=== PATIENT | male | born 1980 | race Caucasian/White ===

== ENCOUNTER 2018-01-10 12:10 | Inpatient (IN) ==
[2018-01-10 14:06] LABS: Baso # (Auto) 0.1 th/mm3 (0.0-0.2); Baso % (Auto) 0.7 % (0.0-2.0); Eos % (Auto) 0.1 % (0.0-4.0); Hematocrit 45.4 % (39.0-51.0); Lymph # (Auto) 1.6 th/mm3 (1.0-4.8); Lymph % (Auto) 15.1 % (9.0-44.0); Mean Corpuscular HGB Conc 35.3 % (32.0-36.0); Mean Corpuscular Volume 85.1 fL (80.0-100.0); Mean Platelet Volume 7.5 fL (7.0-11.0); Mono # (Auto) 0.5 th/mm3 (0.0-0.9); Mono % (Auto) 4.5 % (0.0-8.0); Neut # (Auto) 8.4 th/mm3 (1.8-7.7); Neut % (Auto) 79.6 % (16.0-70.0); Platelet Count 334 th/mm3 (150-450); Red Blood Count 5.33 mil/mm3 (4.50-5.90); Red Cell Distribution Width 13.7 % (11.6-17.2); White Blood Count 10.6 th/mm3 (4.0-11.0)
[2018-01-10 14:13] LABS: Amphetamine Screen,Urine Neg (Neg); Barbiturate Screen,Urine Neg (Neg); Cannabinoid Screen,Urine Pos (Neg); Cocaine Screen,Urine Neg (Neg)
[2018-01-10 14:14] LABS: Opiate Screen,Urine Neg (Neg)
[2018-01-10] MEDS ORDERED: Lidocaine PF 1% Inj 30 ML Vial ONE (14:18)
--- NOTE | 2018-01-10 14:40 | ED ---
HPI General Chief Complaint: Psychiatric Symptoms Stated Complaint: Psych Eval/VCSO Time Seen by Provider: 01/10/18 15:43 Source: patient and EMS Mode of arrival: EMS Limitations: no limitations History of Present Illness HPI Narrative: 37-year-old male patient presents to the ER today brought in because apparently he had an argument with girlfriend, and had split his left wrist, states that he was upset, but is upset that he had done this. He denies any ingestions, denies any other injuries. He denies suicidal ideation, however patient has been Castano acted. Related Data Home Medications Medication Instructions Recorded Confirmed lisinopril 10 mg PO DAILY 01/10/18 01/10/18 Allergies Allergy/AdvReac Type Severity Reaction Status Date / Time No Known Allergies Allergy Unverified 01/10/18 13:08 Review of Systems Except as stated in HPI: all other systems reviewed are negative [facility] Medical History Medical History Seizure (Acute) Surgical History Surgical History H/O brain surgery (Acute) Social History Social History Substance History: No History of Abuse and Past History Second Hand Smoke Exposure: No Smoking Status: Unknown if ever smoked How Often Do You Have a Drink Containing Alcohol: 2 to 4 times a month Recent Travel in [facility] within the Last 8 Weeks: No Recent Out of Country Travel within the Last 8 Weeks: No Immunization History Tetanus Immunization: Unsure Hx Influenza Vaccine This Season: No Exam Narrative Exam Narrative: GENERAL: Well-developed young white male patient currently and mild distress. Awake and oriented 3. SKIN: Focused skin assessment warm/dry. There is a 4 cm laceration of the left wrist, does not involve the ligaments, and several linear lacerations around this area as well. HEAD: Atraumatic. Normocephalic. EYES: Pupils equal and round. No scleral icterus. No injection or drainage. ENT: No nasal bleeding or discharge. Mucous membranes pink and moist. NECK: Trachea midline. No JVD. CARDIOVASCULAR: Regular rate and rhythm. No murmur appreciated. RESPIRATORY: No accessory muscle use. Clear to auscultation. Breath sounds equal bilaterally. GASTROINTESTINAL: Abdomen soft, non-tender, nondistended. Hepatic and splenic margins not palpable. MUSCULOSKELETAL: No obvious deformities. No clubbing. No cyanosis. No edema. NEUROLOGICAL: Awake and alert. No obvious cranial nerve deficits. Motor grossly within normal limits. Normal speech. PSYCHIATRIC: Appropriate mood and affect; insight and judgment normal. Procedures Laceration Laceration 1: Site: other (Left wrist) Side (If applicable): left Size (cm): 4 Description: linear Depth: simple, single layer Anesthetic used: lidocaine 1% Pre-repair:: wound explored, irrigated extensively and deep structures intact Skin layer closed with: vicryl Size (cm): 3-0 Number of sutures:: 5 Technique:: simple, interrupted Course Hospital Course: Sutures were done by me in the ER. Wound care instructions given, sutures to be taken out in 10-14 days. Patient's tetanus shots are up-to-date. Lab work has been done and patient will be medically cleared for psychiatric evaluation. Initial Documented Vital Signs Temperature 98.2 F 01/10/18 12:19 Pulse Rate 70 01/10/18 12:19 Respiratory Rate 16 01/10/18 12:19 Blood Pressure 169/83 H 01/10/18 12:19 Pulse Oximetry 100 01/10/18 12:19 Last Documented Vital Signs Temperature 98.2 F 01/10/18 12:19 Pulse Rate 68 01/10/18 14:46 Respiratory Rate 16 01/10/18 12:19 Blood Pressure 142/78 H 01/10/18 14:46 Pulse Oximetry 100 01/10/18 12:19 Medical Decision Making Differential Diagnosis Differential Diagnosis: Psych/Castano act/laceration Lab Data Result diagrams: 01/10/18 13:25 01/10/18 13:25 Lab Results 01/10/18 01/10/18 01/10/18 Range/Units 12:25 13:25 13:25 WBC 10.6 (4.0-11.0) th/mm3 RBC 5.33 (4.50-5.90) mil/mm3 Hgb 16.0 (13.0-17.0) gm/dL Hct 45.4 (39.0-51.0) % MCV 85.1 (80.0-100.0) fL MCH 30.0 (27.0-34.0) pg MCHC 35.3 (32.0-36.0) % RDW 13.7 (11.6-17.2) % Plt Count 334 (150-450) th/mm3 MPV 7.5 (7.0-11.0) fL Neut % (Auto) 79.6 H (16.0-70.0) % Lymph % (Auto) 15.1 (9.0-44.0) % Pickett % (Auto) 4.5 (0.0-8.0) % Eos % (Auto) 0.1 (0.0-4.0) % Baso % (Auto) 0.7 (0.0-2.0) % Neut # (Auto) 8.4 H (1.8-7.7) th/mm3 Lymph # (Auto) 1.6 (1.0-4.8) th/mm3 Pickett # (Auto) 0.5 (0.0-0.9) th/mm3 Eos # (Auto) 0.0 (0.0-0.4) th/mm3 Baso # (Auto) 0.1 (0.0-0.2) th/mm3 WBC Differential . Differential Comment Auto diff final Sodium 141 (136-145) meq/L Potassium 3.7 (3.5-5.1) meq/L Chloride 108 H (98-107) meq/L Carbon Dioxide 21.5 (21.0-32.0) meq/L Anion Gap 12 (5-15) meq/L BUN 9 (7-18) mg/dL Creatinine 1.01 (0.60-1.30) mg/dL Estimated GFR 84 L (>89) mL/min Random Glucose 90 (74-106) mg/dL Calcium 9.2 (8.5-10.1) mg/dL Total Bilirubin 0.5 (0.2-1.0) mg/dL AST 7 L (15-37) U/L ALT 19 (12-78) U/L Alkaline Phosphatase 58 (45-117) U/L Total Protein 7.8 (6.4-8.2) g/dL Albumin 4.9 (3.4-5.0) g/dL TSH 0.692 (0.358-3.740) uIU/mL Urine Opiates Screen Neg (Neg) Ur Barbiturates Screen Neg (Neg) Ur Amphetamines Screen Neg (Neg) U Benzodiazepines Scrn Neg (Neg) Urine Cocaine Screen Neg (Neg) U Cannabinoids Screen Pos H (Neg) Serum Alcohol Less than 3 (0-5) mg/dL Discharge Plan Discharge Disposition Patient Disposition: 30 Still Patient Discharge Condition Condition: Stable Discharge Details Anticipated Discharge Date: 01/10/18 Diagnosis: Suicidal ideation, Laceration Physicians Team ED Provider: Gerardo Bran Rxs /Orders / Referrals /Forms Prescriptions: No Action lisinopril 10 mg Tablet 10 mg PO DAILY RF: 0 Discharge Interventions Interventions: ED Discharge Assessment Last Done: 01/10/18 14:46 Vital Signs Last Done: 01/10/18 14:46 Status ED Status: With Doctor
[2018-01-10 15:23] LABS: Alanine Aminotransferase 19 U/L (12-78); Albumin 4.9 g/dL (3.4-5.0); Anion Gap 12 meq/L (5-15); Aspartate Aminotransferase 7 U/L (15-37); Blood Urea Nitrogen 9 mg/dL (7-18); Calcium 9.2 mg/dL (8.5-10.1); Carbon Dioxide 21.5 meq/L (21.0-32.0); Chloride 108 meq/L (98-107); Glomerular Filtration Rate 84 mL/min (>89); Glucose,Random 90 mg/dL (74-106); Potassium 3.7 meq/L (3.5-5.1); Sodium 141 meq/L (136-145)
[2018-01-10 15:33] LABS: Alkaline Phosphatase 58 U/L (45-117); Thyroid Stimulating Hormone 0.692 uIU/mL (0.358-3.740); Total Protein 7.8 g/dL (6.4-8.2)
--- NOTE | 2018-01-10 16:56 | ED ---
HPI - Psych - General Source: patient, EMS Mode of arrival: EMS Limitations: no limitations - History of Present Illness MD complaint: suicidal ideation Onset (ago): month(s) Duration: getting worse History of same: Yes Relieving factors: none Exacerbating factors: none Context: significant life stressor Associated psychiatric symptoms: depression Associated symptoms: denies other symptoms Treatments prior to arrival: none If self harm: admits thoughts of self harm - General Chief Complaint: Psychiatric Symptoms Stated Complaint: Psych Eval/VCSO Time Seen by Provider: 01/10/18 15:43 - History of Present Illness HPI Narrative: This is adult male who presents to this facility under Castano act or making suicidal statements and lacerating his wrist with a knife. He has not been seen at this facility previously. Reviewed electronic medical record, labs, discuss case with staff. Patient was evaluated in his room and J pod. He was found awake, alert, and oriented 4. His speech is clear, logical, and organized. At this time he denies suicidal ideation, homicidal ideation, auditory or visual hallucinations. I can elicit no delusional material. There is no indication of internal stimulation or thought blocking. Patient's mood is sad as is his affect. He is neatly groomed wearing hospital pajamas. He interacts appropriately throughout the interview. Patient states that he "cut his wrist with a knife. I was depressed and trying to kill myself." When asked if anything occurred which made him this despondent he responded, "I think it is the medicine I am on. I take Vimpat for epilepsy." He goes on to explain that he has an associates degree in aircraft maintenance however approximately 5-6 years ago he was diagnosed with new onset of epilepsy. He since has lost his driving privilege and consequently his job. He states that this year he restarted receiving Social Security disability. He reports that he grew up in [place] lives with his who he in 2005. They have no children currently and states that they have a "good relationship". He denies any previous suicide attempts. He denies smoking cigarettes, drinking alcohol, and using drugs. He does state that he had "problems with alcohol" and stopped drinking "a long time ago". He denies any family history of suicide or mental illness. And when asked that question stated, "I believe this is just situational". When asked what situation led to his decision to attempt to end his life he related us that he was helping his in the garden and "I felt like I could not do anything right like I was worthless". Patient does state that he has been quite depressed for several months now since starting the Vimpat in August. (Cici Akins) - Related Data Home Medications Medication Instructions Recorded Confirmed lacosamide [Vimpat] 150 mg PO BID 01/10/18 01/10/18 lisinopril 10 mg PO DAILY 01/10/18 01/10/18 Allergies Allergy/AdvReac Type Severity Reaction Status Date / Time No Known Allergies Allergy Unverified 01/10/18 13:08 PMFSH - History History Provided By: Patient, Broadcast Chief Engineer / EMT, Law Enforcement - Medical History Medical History: Medical History (Last Reviewed 01/10/18 @ 16:48 by TIM Nielsen) Seizure - Surgical History Surgical History: Surgical History (Last Reviewed 01/10/18 @ 16:48 by TIM Nielsen) H/O brain surgery - Tobacco History Second Hand Smoke Exposure: No Smoking Status: Unknown if ever smoked - Alcohol History How Often Do You Have a Drink Containing Alcohol: 2 to 4 times a month - Substance Use History Substance History: Past History - Travel History Recent Travel in the [place] Within the Last 8 Weeks: No Recent Travel Out of the Country Within the Last 8 Weeks: No - Immunization History Tetanus Immunization: Unsure Hx Influenza Vaccine This Season: No Psychiatric History - Psychiatric History History of Inpatient Treatment: No Firearms in Home: No - Psychiatric History Denies (Cici Akins) - Legal History Denies (Cici Akins) - Family Psychiatric History Denies (Cici Akins) Physical Exam - General Limitations: no limitations General appearance: alert Mental Status Examination Appearance: Appropriate, Well dressed/well groomed Consciousness: Alert Orientation: x4 Motor Activity: Normal gait Speech: Unremarkable Language: Adequate Fund of Knowledge: Adequate Attention and Concentration: Adequate Memory: Unremarkable Mood: Appropriate Affect: Appropriate Thought Process & Associations: Intact Thought Content: Appropriate Hallucination Type: None Delusion Type: None Suicidal Ideation: No Suicidal Plan: No Suicidal Intention: No Homicidal Ideation: No Homicidal Plan: No Homicidal Intention: No Insight: Fair Judgment: Impulsive Course Course Narrative: Sutures were done by me in the ER. Wound care instructions given, sutures to be taken out in 10-14 days. Patient's tetanus shots are up-to-date. Lab work has been done and patient will be medically cleared for psychiatric evaluation. Initial Documented Vital Signs Temperature 98.2 F 01/10/18 12:19 Pulse Rate 70 01/10/18 12:19 Respiratory Rate 16 01/10/18 12:19 Blood Pressure 169/83 H 01/10/18 12:19 Pulse Oximetry 100 01/10/18 12:19 Last Documented Vital Signs Temperature 98.2 F 01/10/18 12:19 Pulse Rate 68 01/10/18 14:46 Respiratory Rate 16 01/10/18 12:19 Blood Pressure 142/78 H 01/10/18 14:46 Pulse Oximetry 100 01/10/18 12:19 MDM - Psych - Diagnosis (1) Suicide attempt Status: Acute - Lab Data Result diagrams: 01/10/18 13:25 01/10/18 13:25 - MDM Narrative Medical decision making narrative: Given the extent of the patient's self-inflicted injury and his statements of feeling depressed for "months", he will remain under the Castano act and be admitted to an inpatient locked psychiatric facility for further evaluation and treatment as deemed necessary. When I advised this patient that he was to be admitted he instantly escalated stating, "I will not take any medication unless it is cleared by my neurologist", when I explained to him that was fine he was still being admitted he choose me down the posey and asked "what if I agree to take the medicine". When I explained that due to the severity of his actions that it would be remiss not to observe him to make some attempt to alleviate the depressive symptoms, he began breathing very heavily as if trying to control anger. Therefore I am placing him on 2700 unit as his behavior upon being told he is being admitted became somewhat labile and he seemed like he could act out. (Cici Akins) - Lab Data Lab Results 01/10/18 01/10/18 01/10/18 Range/Units 12:25 13:25 13:25 WBC 10.6 (4.0-11.0) th/mm3 RBC 5.33 (4.50-5.90) mil/mm3 Hgb 16.0 (13.0-17.0) gm/dL Hct 45.4 (39.0-51.0) % MCV 85.1 (80.0-100.0) fL MCH 30.0 (27.0-34.0) pg MCHC 35.3 (32.0-36.0) % RDW 13.7 (11.6-17.2) % Plt Count 334 (150-450) th/mm3 MPV 7.5 (7.0-11.0) fL Neut % (Auto) 79.6 H (16.0-70.0) % Lymph % (Auto) 15.1 (9.0-44.0) % Jennings % (Auto) 4.5 (0.0-8.0) % Eos % (Auto) 0.1 (0.0-4.0) % Baso % (Auto) 0.7 (0.0-2.0) % Neut # (Auto) 8.4 H (1.8-7.7) th/mm3 Lymph # (Auto) 1.6 (1.0-4.8) th/mm3 Jennings # (Auto) 0.5 (0.0-0.9) th/mm3 Eos # (Auto) 0.0 (0.0-0.4) th/mm3 Baso # (Auto) 0.1 (0.0-0.2) th/mm3 WBC Differential . Differential Comment Auto diff final Sodium 141 (136-145) meq/L Potassium 3.7 (3.5-5.1) meq/L Chloride 108 H (98-107) meq/L Carbon Dioxide 21.5 (21.0-32.0) meq/L Anion Gap 12 (5-15) meq/L BUN 9 (7-18) mg/dL Creatinine 1.01 (0.60-1.30) mg/dL Estimated GFR 84 L (>89) mL/min Random Glucose 90 (74-106) mg/dL Calcium 9.2 (8.5-10.1) mg/dL Total Bilirubin 0.5 (0.2-1.0) mg/dL AST 7 L (15-37) U/L ALT 19 (12-78) U/L Alkaline Phosphatase 58 (45-117) U/L Total Protein 7.8 (6.4-8.2) g/dL Albumin 4.9 (3.4-5.0) g/dL TSH 0.692 (0.358-3.740) uIU/mL Urine Opiates Screen Neg (Neg) Ur Barbiturates Screen Neg (Neg) Ur Amphetamines Screen Neg (Neg) U Benzodiazepines Scrn Neg (Neg) Urine Cocaine Screen Neg (Neg) U Cannabinoids Screen Pos H (Neg) Serum Alcohol Less than 3 (0-5) mg/dL
[2018-01-11] MEDS: Lacosamide 50 MG Tablet PO SCH ×2 (00:18→10:24)
[2018-01-11] MEDS ORDERED: Lisinopril 10 MG Tablet PO SCH (09:00)
[2018-01-11 09:13] LABS: Calcium 9.5 mg/dL (8.5-10.1); Carbon Dioxide 20.9 meq/L (21.0-32.0); Potassium 3.7 meq/L (3.5-5.1)
[2018-01-11 09:18] LABS: Chol/HDL Ratio 3.58 Ratio; HDL Cholesterol 42.1 mg/dL (40.0-60.0)
[2018-01-11 11:26] LABS: Hemoglobin A1c 4.6 % (4.3-6.0)
[2018-01-11] MEDS ORDERED: Bisacodyl 10 MG Supp RECTAL PRN (12:39)
[2018-01-11] MEDS ORDERED: Aluminum/Magnesium/Simethacone Susp 30 ML UDC PO PRN (12:39)
--- NOTE | 2018-01-11 12:47 | P.HPPSY ---
Provisional Diagnosis Admission Date: January 10, 2018 16:44 [place] I.: Adjustment disorder with mixed disturbances of emotion and conduct Competence Certification of Person's Competence To Provide Express and Informed Consent I have personally examined Hang Matos, a person being served at [facility] on, January 11, 2018 1245. Express and informed consent means consent voluntarily given in writing, by a competent person, after sufficient explanation and disclosure of the subject matter involved to enable the person to make a knowing and willful decision without any element of force, fraud, deceit, duress, or other form of constraint or coercion. This person is 18 years of age or older, is not now known to be incompetent to consent to treatment with a guardian advocate, and does not have a health care surrogate or proxy currently making medical treatment decisions. I have found this person to be one of the following: [[id number]] Competent to provide express and informed consent, as defined above, for voluntary admission to this facility and is competent to provide express and informed consent for treatment. He/she has the consistent capacity to make well reasoned, willful, and knowing decisions concerning his or her medical or mental health treatment. The person fully and consistently understands the purpose of the admission for examination/placement and is fully capable of personally exercising all rights assured [place] Incompetent to provide express and informed consent to voluntary admission, and this is incompetent to provide express and informed consent to treatment. The person must be transferred to involuntary status and a petition for a guardian advocate filed with the Circuit Court. [] Refusing to provide express and informed consent to voluntary admission but is competent to provide express and informed consent for treatment. The person must be discharged or transferred to involuntary status. Form shall be completed within 24 hours of a person's arrival at the receiving facility and filed in the clinical record of each person: 1. Admitted on a voluntary basis 2. Permitted to provide express and informed consent to his/her own treatment 3. Allowed to transfer from involuntary to voluntary status 4. Prior to permitting a person to consent to his or her own treatment after having been previously found incompetent to consent to treatment. History of Present Illness Capacity: Has capacity History of Present Illness: Patient is a 37-year-old white male initially comes for under Castano act by the [facility]'s office dated 01/10/2018 at 11:10 AM that document reviewed stating subject advised he wanted to kill himself subject cut his wrist causing significant bleeding. Subject statements of wanting to kill himself coupled with cutting himself indicates a substantial likelihood that without careful treatment subject will hurt himself patient seen screen in the ED urine toxicology positive for marijuana. At the present time patient sitting quietly in his room nurse Deidre present throughout session. Patient alert and oriented white male appears about his stated age sitting quietly in his room with bandages noted on his left wrist. Patient states he became upset at home this illness charges of his life in the difficulty with finding a means of controlling his multiple years seizure disorder which includes at least 3 or 4 cranial procedures. Leading to loss of his job and difficulty finding appointment. He knew his gotten a little bit of an argument with it and cut his left wrist and came in showed her he became instantly regretful of this. At the present time patient denies suicidality homicidality voice or visions. States he loves his that they have much to live for he is an animal person and they do have dogs and cats in their house. Patient does go to the epilepsy group he has an appointment on Saturday with his psychologist from that group and is planning and also seeing a psychiatrist from that group. He denies any significant alcohol abuse. He minimizes his use of marijuana. At this time patient does not meet Castano criteria will lift Castano act patient to be discharged from self with no Rx by me. He may continue his on seizure medication at all follow-up with his seizure physician and his counselor - Inpatient Certification I certify that the inpatient services were ordered in accordance with Medicare regulations governing the order. This includes certification that hospital inpatient services are reasonable and necessary and in the case of services not specified as inpatient-only under 42 CFR 419.22(n), that they are appropriately provided as inpatient services in accordance to with the 2-midnight benchmark under 43 CFR 412.3(e) I certify that inpatient psychiatric hospital services are medically necessary. Evaluation and treatment and/or diagnostic testing are expected to improve the patient's condition. The patient needs on a daily basis, active treatment furnished directly by or requiring the supervision of inpatient psychiatric facility personnel. Estimated Total Length of Stay (Days): 1 Plans for Post Hospital Care: Home Review of Systems All other systems reviewed negative except as stated in [facility] - History History Provided By: Patient - Medical History Medical History: Medical History (Last Reviewed 01/10/18 @ 16:48 by TIM Nielsen) Seizure - Surgical History Surgical History: Surgical History (Last Reviewed 01/10/18 @ 16:48 by TIM Nielsen) H/O brain surgery - Tobacco History Second Hand Smoke Exposure: No Smoking Status: Never smoker - Alcohol History How Often Do You Have a Drink Containing Alcohol: Never - Substance Use History Substance History: No History of Abuse - Travel History Recent Travel in the [place] Within the Last 8 Weeks: No Recent Travel Out of the Country Within the Last 8 Weeks: No - Immunization History Tetanus Immunization: Unsure Hx Influenza Vaccine This Season: No Quality Measures - Psychiatric History Psychological trauma history: Patient denies Violence risk to others in the last 6 months: Low Violence risk to self in the last 6 months: Low to moderate - Substance Abuse History Drug or alcohol use in the past 12 months: Patient occasional user of marijuana - Patient Strengths Patient's strengths (minimum of 2): Patient verbal able access healthcare cooperative Medications and Allergies Active Medications: Active Medications Al Hydrox/Mg Hydrox/Simethicone (Mag-Al Plus Susp Liq) 30 ml PO Q6H PRN PRN Reason: DYSPEPSIA Al Hydroxide/Mg Hydroxide (Milk Of Magnesia Liq) 30 ml PO Q12H PRN PRN Reason: Mild Constipation Al Hydroxide/Mg Hydroxide (Milk Of Magnesia Liq) 30 ml PO Q12H PRN PRN Reason: Mild Constipation Bisacodyl (Dulcolax Supp) 10 mg RECTAL DAILY PRN PRN Reason: SEVERE CONSITIPATION Lacosamide (Vimpat) 150 mg PO BID [facility] Last Admin: 01/11/18 10:24 Dose: 150 mg Lactulose (Lactulose Liq) 30 ml PO DAILY PRN PRN Reason: SEVERE CONSITIPATION Lisinopril (Prinivil) 10 mg PO DAILY [facility] Last Admin: 01/11/18 10:25 Dose: 10 mg Senna/Docusate Sodium (Merle-Colace) 1 tab PO BID [facility] Sennosides (Senokot) 17.2 mg PO Q12H PRN PRN Reason: Moderate Constipation Allergies Allergy/AdvReac Type Severity Reaction Status Date / Time No Known Allergies Allergy Unverified 01/10/18 13:08 Home Medications Medication Instructions Recorded Confirmed Type lacosamide [Vimpat] 150 mg PO BID 01/10/18 01/10/18 History zonisamide [Zonegran] 200 mg PO Q12H 01/11/18 01/11/18 History Results - Labs CBC & Chem 7: 01/10/18 13:25 01/11/18 07:58 Labs: Laboratory Results - last 24 hr 01/10/18 01/10/18 01/10/18 12:25 13:25 13:25 WBC 10.6 RBC 5.33 Hgb 16.0 Hct 45.4 MCV 85.1 MCH 30.0 MCHC 35.3 RDW 13.7 Plt Count 334 MPV 7.5 Neut % (Auto) 79.6 H Lymph % (Auto) 15.1 Rains % (Auto) 4.5 Eos % (Auto) 0.1 Baso % (Auto) 0.7 Neut # (Auto) 8.4 H Lymph # (Auto) 1.6 Rains # (Auto) 0.5 Eos # (Auto) 0.0 Baso # (Auto) 0.1 WBC Differential . Differential Comment Auto diff final Sodium 141 Potassium 3.7 Chloride 108 H Carbon Dioxide 21.5 Anion Gap 12 BUN 9 Creatinine 1.01 Estimated GFR 84 L Random Glucose 90 Calcium 9.2 Total Bilirubin 0.5 AST 7 L ALT 19 Alkaline Phosphatase 58 Total Protein 7.8 Albumin 4.9 Triglycerides Cholesterol LDL Cholesterol, Calc HDL Cholesterol Cholesterol/HDL Ratio TSH 0.692 Urine Opiates Screen Neg Ur Barbiturates Screen Neg Ur Amphetamines Screen Neg U Benzodiazepines Scrn Neg Urine Cocaine Screen Neg U Cannabinoids Screen Pos H Serum Alcohol Less than 3 01/11/18 07:58 WBC RBC Hgb Hct MCV MCH MCHC RDW Plt Count MPV Neut % (Auto) Lymph % (Auto) Rains % (Auto) Eos % (Auto) Baso % (Auto) Neut # (Auto) Lymph # (Auto) Rains # (Auto) Eos # (Auto) Baso # (Auto) WBC Differential Differential Comment Sodium 141 Potassium 3.7 Chloride 108 H Carbon Dioxide 20.9 L Anion Gap 12 BUN 12 Creatinine 1.02 Estimated GFR 83 L Random Glucose 125 H Calcium 9.5 Total Bilirubin AST ALT Alkaline Phosphatase Total Protein Albumin Triglycerides 97 Cholesterol 151 LDL Cholesterol, Calc 90 HDL Cholesterol 42.1 Cholesterol/HDL Ratio 3.58 TSH Urine Opiates Screen Ur Barbiturates Screen Ur Amphetamines Screen U Benzodiazepines Scrn Urine Cocaine Screen U Cannabinoids Screen Serum Alcohol Exam Vital signs: Vital Signs 01/10/18 14:46 01/10/18 18:15 Temperature 98.1 F Pulse Rate 68 Respiratory Rate 18 Blood Pressure 142/78 H 180/85 H Pulse Oximetry 98 Intake & Output 01/10/18 01/11/18 01/11/18 18:59 06:59 18:59 Weight 91.2 kg Other: Weight On Admission 91.2 kg Narrative: Patient seen in his room he is in no acute distress, he is in no respiratory distress, no complaints of chest pain, no complaints of abdominal pain, patient moving all 4 extremities without difficulty Mental Status Examination Appearance: Appropriate, Well dressed/well groomed Consciousness: Alert Orientation: x4 Motor Activity: Normal gait Speech: Unremarkable Language: Adequate Fund of Knowledge: Adequate Attention and Concentration: Adequate Memory: Unremarkable Mood: Other (Euthymic to mildly dysphoric) Affect: Other (Good range and intensity) Thought Process & Associations: Intact Thought Content: Appropriate Hallucination Type: None Delusion Type: None Suicidal Ideation: No Suicidal Plan: No Suicidal Intention: No Homicidal Ideation: No Homicidal Plan: No Homicidal Intention: No Insight: Adequate Judgment: Adequate Assessment and Plan - Plan Plan: Estimated LOS: [] days At this time patient does not meet Castano criteria lift Castano act. Patient to be discharged to himself, no Rx by me, may continue his own home scheduled medications, follow-up with his psychologist through the epilepsy group and with psychiatry through that group Justification for Continued Inpatient Stay: Patient to be discharged today to Discharge Planning: Going home with Request Healthcare Surrogate/Guardian Advocate?: No
--- NOTE | 2018-01-11 12:57 | P.DSPSY ---
Psychiatry Discharge Summary Inpatient Psychiatric care?: Yes Advance Directives: No Mental Health Advance Directive: No Health Care Proxy: No - Admission Admission Date: January 10, 2018 16:44 - Admission Diagnosis (1) Adjustment disorder with mixed disturbance of emotions and conduct Code(s): F43.25 - Adjustment disorder with mixed disturbance of emotions and conduct (2) Marijuana abuse Code(s): F12.10 - Cannabis abuse, uncomplicated Brief History: Patient is a 37-year-old white male initially comes for under Castano act by the [facility]'s office dated 01/10/2018 at 11:10 AM that document reviewed stating subject advised he wanted to kill himself subject cut his wrist causing significant bleeding. Subject statements of wanting to kill himself coupled with cutting himself indicates a substantial likelihood that without careful treatment subject will hurt himself patient seen screen in the ED urine toxicology positive for marijuana. At the present time patient sitting quietly in his room nurse Deidre present throughout session. Patient alert and oriented white male appears about his stated age sitting quietly in his room with bandages noted on his left wrist. Patient states he became upset at home this illness charges of his life in the difficulty with finding a means of controlling his multiple years seizure disorder which includes at least 3 or 4 cranial procedures. Leading to loss of his job and difficulty finding appointment. He knew his gotten a little bit of an argument with it and cut his left wrist and came in showed her he became instantly regretful of this. At the present time patient denies suicidality homicidality voice or visions. States he loves his that they have much to live for he is an animal person and they do have dogs and cats in their house. Patient does go to the epilepsy group he has an appointment on Saturday with his psychologist from that group and is planning and also seeing a psychiatrist from that group. He denies any significant alcohol abuse. He minimizes his use of marijuana. At this time patient does not meet Omaira criteria will lift Castano act patient to be discharged from self with no Rx by me. He may continue his on seizure medication at all follow-up with his seizure physician and his counselor Tobacco Use In Past 30 Days: No How Often Do You Have a Drink Containing Alcohol: Never Hospital Course: See above note under brief history patient does not meet Omaira criteria he denies suicidality homicidality voice or visions, is able contract to do no harm. He does have an appointment to see his psychologist with epilepsy group Saturday. His picked him up today he will continue his own home medications , no Rx by me - Discharge Discharge Date: 01/11/18 - Discharge Diagnosis (1) Adjustment disorder with mixed disturbance of emotions and conduct Code(s): F43.25 - Adjustment disorder with mixed disturbance of emotions and conduct Status: Acute Discharge Disposition: Home - Discharge Instructions Discharge Diet: Regular Diet Activities You Can Perform: Regular- No Restrictions - Discharge Time > 30 minutes Mental Status Examination Appearance: Appropriate, Well dressed/well groomed Consciousness: Alert Orientation: x4 Motor Activity: Normal gait Speech: Unremarkable Language: Adequate Fund of Knowledge: Adequate Attention and Concentration: Adequate Memory: Unremarkable Mood: Other (Euthymic to mildly dysphoric) Affect: Other (Good range and intensity) Thought Process & Associations: Intact Thought Content: Appropriate Hallucination Type: None Delusion Type: None Suicidal Ideation: No Suicidal Plan: No Suicidal Intention: No Homicidal Ideation: No Homicidal Plan: No Homicidal Intention: No Insight: Adequate Judgment: Adequate Discharge/Advance Care Plan - Results Vital Signs: Last Vital Signs Temp 98.1 F 01/10/18 18:15 Pulse 68 01/10/18 14:46 Resp 18 01/10/18 18:15 BP 180/85 H 01/10/18 18:15 Pulse Ox 98 01/10/18 18:15 Lab Results: Abnormal Lab Results 01/10/18 01/10/18 01/10/18 12:25 13:25 13:25 WBC 10.6 RBC 5.33 Hgb 16.0 Hct 45.4 MCV 85.1 MCH 30.0 MCHC 35.3 RDW 13.7 Plt Count 334 MPV 7.5 Neut % (Auto) 79.6 H Lymph % (Auto) 15.1 Laurel % (Auto) 4.5 Eos % (Auto) 0.1 Baso % (Auto) 0.7 Neut # (Auto) 8.4 H Lymph # (Auto) 1.6 [place] # (Auto) 0.5 Eos # (Auto) 0.0 Baso # (Auto) 0.1 WBC Differential . Differential Comment Auto diff final Sodium 141 Potassium 3.7 Chloride 108 H Carbon Dioxide 21.5 Anion Gap 12 BUN 9 Creatinine 1.01 Estimated GFR 84 L Random Glucose 90 Hemoglobin A1c Calcium 9.2 Total Bilirubin 0.5 AST 7 L ALT 19 Alkaline Phosphatase 58 Total Protein 7.8 Albumin 4.9 Triglycerides Cholesterol LDL Cholesterol, Calc HDL Cholesterol Cholesterol/HDL Ratio TSH 0.692 Urine Opiates Screen Neg Ur Barbiturates Screen Neg Ur Amphetamines Screen Neg U Benzodiazepines Scrn Neg Urine Cocaine Screen Neg U Cannabinoids Screen Pos H Serum Alcohol Less than 3 01/11/18 01/11/18 07:58 07:58 WBC RBC Hgb Hct MCV MCH MCHC RDW Plt Count MPV Neut % (Auto) Lymph % (Auto) La[place] % (Auto) Eos % (Auto) Baso % (Auto) Neut # (Auto) Lymph # (Auto) [place] # (Auto) Eos # (Auto) Baso # (Auto) WBC Differential Differential Comment Sodium 141 Potassium 3.7 Chloride 108 H Carbon Dioxide 20.9 L Anion Gap 12 BUN 12 Creatinine 1.02 Estimated GFR 83 L Random Glucose 125 H Hemoglobin A1c 4.6 Calcium 9.5 Total Bilirubin AST ALT Alkaline Phosphatase Total Protein Albumin Triglycerides 97 Cholesterol 151 LDL Cholesterol, Calc 90 HDL Cholesterol 42.1 Cholesterol/HDL Ratio 3.58 TSH Urine Opiates Screen Ur Barbiturates Screen Ur Amphetamines Screen U Benzodiazepines Scrn Urine Cocaine Screen U Cannabinoids Screen Serum Alcohol Laboratory Results Hemoglobin A1c 4.6 % (4.3-6.0) 01/11/18 07:58 Triglycerides 97 mg/dL (42-150) 01/11/18 07:58 Cholesterol 151 mg/dL (120-200) 01/11/18 07:58 LDL Cholesterol, Calc 90 mg/dL (0-99) 01/11/18 07:58 HDL Cholesterol 42.1 mg/dL (40.0-60.0) 01/11/18 07:58 TSH 0.692 uIU/mL (0.358-3.740) 01/10/18 13:25 Summary of Procedures: None done Pending Results: None - Medications Number of antipsychotic medications at discharge: 0 - Discharge Care Plan Goals to Promote Your Health: * To prevent worsening of your condition and complications * To maintain your health at the optimal level Directions to Meet Your Goals: Take your medications as prescribed Follow your dietary instruction Follow activity as directed Keep your appointments as scheduled Take your immunizations and boosters as scheduled If your symptoms worsen call your PCP, if no PCP go to Urgent Care Center or Emergency Room For 21/01 questions related to your inpatient stay or results of tests pending at discharge, please contact Dr. Rohith Torres MD at Smoking is Dangerous to Your Health. Avoid second hand smoking
[2018-01-11] MEDS ORDERED: Senna/Docusate Sodium 8.6/50 MG Tablet PO SCH (21:00)
== END 2018-01-11 14:20 | disposition home or self-care (01) ==
LOC: NEDAMB 12:10 → NEDA 16:44 → H270 18:03
PROVIDERS: ADMIT Student in an Organized Health Care Education/Training Program; ATTEND Student in an Organized Health Care Education/Training Program